=== PATIENT | female | born 1930 | race Asian ===

== ENCOUNTER 2017-06-13 19:56 | Inpatient (IN) | payer MEDICARE, OTHER ==
[~2017-06-13] VITALS: Ht 157.5 cm; Wt 42.1 kg
[~2017-06-13 19:56] MED LIST: ALLO100T PO; CARV12.530 PO; CHOL500045 PO; EPA PO; FERR1TAB85 PO; FURO20 PO; ISOS30TA11 PO; OSCAL PO; SIMV40TA5 PO; WARF1 PO; WARF2 PO
[2017-06-13] MEDS ORDERED: APIX5TAB PO (20:05)
[2017-06-13 20:55] LABS: BASOPHILS % (AUTO) 0.5 % (0.0-2.0); EOSINOPHILS % (AUTO) 0.2 % (1.0-6.0); HEMOGLOBIN 10.4 g/dL (12.0-16.0); LYMPHOCYTES # (AUTO) 0.8 K/uL (1.0-4.8); LYMPHOCYTES % (AUTO) 10.1 % (22.0-44.0); MEAN CORPUSCULAR HEMOGLOBIN 34.1 pg (26.0-34.0); MEAN CORPUSCULAR HGB CONC 33.6 G/dL (31.0-37.0); MEAN CORPUSCULAR VOLUME 102 fL (80-100); MONOCYTES # (AUTO) 0.5 K/uL (0.1-1.0); MONOCYTES % (AUTO) 6.5 % (2.0-9.0); NEUTROPHILS # (AUTO) 6.8 K/uL (1.8-7.7); NEUTROPHILS % (AUTO) 82.7 % (40.0-70.0); PLATELET COUNT (AUTO) 218 K/uL (150-450); RED BLOOD CELL COUNT(AUTO) 3.05 MIL/uL (4.00-5.20); RED CELL DISTRIBUTION WIDTH 16.1 % (11.5-14.5); WHITE BLOOD COUNT (AUTO) 8.2 K/uL (4.5-11.0)
[2017-06-13 20:58] LABS: CALCIUM, TOTAL 9.1 mg/dL (8.8-10.5); CREATININE 1.51 mg/dL (0.60-1.30); POTASSIUM 3.3 mmol/L (3.5-5.1)
[2017-06-13 21:05] LABS: TROPONIN I 0.07 ng/mL (0.00-0.05)
[2017-06-13 21:08] LABS: INR 1.3 (0.9-1.1); PROTHROMBIN TIME 13.2 SEC (9.4-11.6)
[2017-06-13 21:14] LABS: AMMONIA < 10 umol/L (11-32)
[2017-06-13 21:20] LABS: RBC MORPHOLOGY COMMENT ABNORMAL RBC MORPH
[2017-06-13 21:22] LABS: BILIRUBIN,TOTAL 1.8 mg/dL (0.1-1.0); CREATINE KINASE MB 5.4 ng/mL (0-5); TOTAL PROTEIN, SERUM 6.9 g/dL (6.4-8.2)
[2017-06-13] MEDS ORDERED: MAGNESIUM HYDROXIDE SUSPENSION 30 ML UDCUP PO PRN (23:30)
[2017-06-13] MEDS ORDERED: 0.9% SODIUM CHLORIDE 10 ML SYRINGE IVP PRN ×2 (23:30)
[2017-06-13] MEDS ORDERED: OxyCODONE HCL/ACETAMINOPHEN 5-325 MG TABLET PO PRN ×2 (23:30)
[2017-06-13] MEDS ORDERED: ONDANSETRON HCL 4 MG/2 ML VIAL IVP PRN ×2 (23:30)
[2017-06-13] MEDS ORDERED: ACETAMINOPHEN 325 MG TABLET PO PRN ×2 (23:30)
[2017-06-14] MEDS ORDERED: SIMVASTATIN 40 MG TABLET PO SCH
[2017-06-14] MEDS: APIXABAN 5 MG TABLET PO SCH ×3 (02:17→20:37)
[2017-06-14 04:46] VITALS: BP 110/60
[2017-06-14 06:52] LABS: BASOPHILS % (AUTO) 0.2 % (0.0-2.0); EOSINOPHILS % (AUTO) 0.4 % (1.0-6.0); HEMATOCRIT 30.2 % (36-46); HEMOGLOBIN 10.1 g/dL (12.0-16.0); LYMPHOCYTES # (AUTO) 0.9 K/uL (1.0-4.8); LYMPHOCYTES % (AUTO) 13.5 % (22.0-44.0); MEAN CORPUSCULAR HEMOGLOBIN 34.4 pg (26.0-34.0); MEAN CORPUSCULAR HGB CONC 33.4 G/dL (31.0-37.0); MEAN CORPUSCULAR VOLUME 103 fL (80-100); MONOCYTES # (AUTO) 0.5 K/uL (0.1-1.0); MONOCYTES % (AUTO) 7.1 % (2.0-9.0); NEUTROPHILS # (AUTO) 5.5 K/uL (1.8-7.7); NEUTROPHILS % (AUTO) 78.8 % (40.0-70.0); PLATELET COUNT (AUTO) 183 K/uL (150-450); RED BLOOD CELL COUNT(AUTO) 2.93 MIL/uL (4.00-5.20); RED CELL DISTRIBUTION WIDTH 16.5 % (11.5-14.5)
[2017-06-14 07:00] LABS: CALCIUM, TOTAL 8.9 mg/dL (8.8-10.5); CREATININE 1.25 mg/dL (0.60-1.30)
[2017-06-14 07:07] LABS: POTASSIUM 2.9 mmol/L (3.5-5.1)
[2017-06-14 07:30] VITALS: BP 105/67
[2017-06-14] MEDS ORDERED: POTASSIUM CHLORIDE 20 MEQ ER TABLET PO PRN (08:00)
[2017-06-14] MEDS ORDERED: CARVEDILOL 12.5 MG TABLET PO SCH ×2 (09:00)
[2017-06-14] MEDS: DOCUSATE SODIUM 100 MG CAPSULE PO SCH ×2 (09:11→20:37)
[2017-06-14] MEDS: ISOSORBIDE DINITRATE 10 MG TABLET PO SCH (09:11)
[2017-06-14] MEDS: CALCIUM OYSTER SHELL 500 MG TABLET PO SCH ×2 (09:11→20:37)
[2017-06-14] MEDS: PANTOPRAZOLE SODIUM 40 MG/VIAL IVP SCH (09:12)
[2017-06-14] MEDS: ALLOPURINOL 100 MG TABLET PO SCH (09:12)
[2017-06-14] MEDS: FUROSEMIDE 40 MG TABLET PO SCH (09:12)
[2017-06-14] MEDS: FERROUS SULFATE 325 MG EC TABLET PO SCH (09:12)
[2017-06-14 09:38] LABS: RBC MORPHOLOGY COMMENT ABNORMAL RBC MORPH
[2017-06-14 11:14] VITALS: BP 92/46
[2017-06-14] MEDS ORDERED: SODIUM CHLORIDE 0.9% 500 ML IV ONE (11:29)
[2017-06-14] MEDS: OMEGA-3/DHA/EPA/FISH OIL 500 MG CAPSULE PO SCH (11:32)
[2017-06-14] MEDS: POTASSIUM CHL 10 MEQ/WATER 50 ML IV PRN ×4 (11:33→16:55)
[2017-06-14 16:06] VITALS: BP 112/59
[2017-06-14] MEDS: SIMVASTATIN 20 MG TABLET PO SCH (18:16)
[2017-06-14 20:11] VITALS: BP 98/55
[2017-06-14] MEDS: CARVEDILOL 6.25 MG TABLET PO SCH (20:37)
[2017-06-15] VITALS (7 sets, daily range): BP systolic 116–125; BP diastolic 58–89
[2017-06-15 06:31] LABS: BASOPHILS % (AUTO) 0.3 % (0.0-2.0); EOSINOPHILS % (AUTO) 0.4 % (1.0-6.0); HEMATOCRIT 29.9 % (36-46); HEMOGLOBIN 10.1 g/dL (12.0-16.0); LYMPHOCYTES # (AUTO) 1.2 K/uL (1.0-4.8); LYMPHOCYTES % (AUTO) 19.5 % (22.0-44.0); MEAN CORPUSCULAR HEMOGLOBIN 34.4 pg (26.0-34.0); MEAN CORPUSCULAR HGB CONC 33.7 G/dL (31.0-37.0); MEAN CORPUSCULAR VOLUME 102 fL (80-100); MONOCYTES # (AUTO) 0.5 K/uL (0.1-1.0); MONOCYTES % (AUTO) 8.5 % (2.0-9.0); NEUTROPHILS # (AUTO) 4.5 K/uL (1.8-7.7); NEUTROPHILS % (AUTO) 71.3 % (40.0-70.0); PLATELET COUNT (AUTO) 204 K/uL (150-450); RED BLOOD CELL COUNT(AUTO) 2.92 MIL/uL (4.00-5.20); RED CELL DISTRIBUTION WIDTH 16.3 % (11.5-14.5); WHITE BLOOD COUNT (AUTO) 6.3 K/uL (4.5-11.0)
[2017-06-15 06:52] LABS: ALBUMIN 2.9 g/dL (3.4-5.0); BILIRUBIN,TOTAL 1.2 mg/dL (0.1-1.0); CALCIUM, TOTAL 9.2 mg/dL (8.8-10.5); CREATININE 1.62 mg/dL (0.60-1.30); MAGNESIUM 2.1 mg/dL (1.80-2.40); POTASSIUM 4.5 mmol/L (3.5-5.1); TOTAL PROTEIN, SERUM 6.8 g/dL (6.4-8.2)
[2017-06-15] MEDS: APIXABAN 5 MG TABLET PO SCH (08:42)
[2017-06-15] MEDS: PANTOPRAZOLE SODIUM 40 MG/VIAL IVP SCH (08:42)
[2017-06-15] MEDS: DOCUSATE SODIUM 100 MG CAPSULE PO SCH ×2 (08:42→21:35)
[2017-06-15] MEDS: OMEGA-3/DHA/EPA/FISH OIL 500 MG CAPSULE PO SCH (08:43)
[2017-06-15] MEDS: CARVEDILOL 6.25 MG TABLET PO SCH ×2 (08:43→21:35)
[2017-06-15] MEDS: FUROSEMIDE 40 MG TABLET PO SCH (08:44)
[2017-06-15] MEDS: CALCIUM OYSTER SHELL 500 MG TABLET PO SCH ×2 (08:44→21:35)
[2017-06-15] MEDS: FERROUS SULFATE 325 MG EC TABLET PO SCH (08:44)
[2017-06-15] MEDS: ALLOPURINOL 100 MG TABLET PO SCH (08:44)
[2017-06-15] MEDS: ISOSORBIDE DINITRATE 10 MG TABLET PO SCH (13:32)
[2017-06-15] MEDS ORDERED: FURO40 PO (15:49)
[2017-06-15] MEDS ORDERED: OS500 PO (15:49)
[2017-06-15] MEDS: SIMVASTATIN 20 MG TABLET PO SCH (17:37)
[2017-06-16 04:53] VITALS: BP 104/79
[2017-06-16 07:35] VITALS: BP 98/56
[2017-06-16] MEDS: CARVEDILOL 6.25 MG TABLET PO SCH (09:00)
[2017-06-16] MEDS ORDERED: APIXABAN 2.5 MG TABLET PO SCH (09:00)
[2017-06-16] MEDS: DOCUSATE SODIUM 100 MG CAPSULE PO SCH (09:00)
[2017-06-16] MEDS: FERROUS SULFATE 325 MG EC TABLET PO SCH (09:00)
[2017-06-16] MEDS: ALLOPURINOL 100 MG TABLET PO SCH (09:00)
[2017-06-16] MEDS: FUROSEMIDE 40 MG TABLET PO SCH (09:00)
[2017-06-16] MEDS: PANTOPRAZOLE SODIUM 40 MG/VIAL IVP SCH (09:00)
[2017-06-16] MEDS: OMEGA-3/DHA/EPA/FISH OIL 500 MG CAPSULE PO SCH (09:00)
[2017-06-16] MEDS: CALCIUM OYSTER SHELL 500 MG TABLET PO SCH (09:00)
[2017-06-16] MEDS: ISOSORBIDE DINITRATE 10 MG TABLET PO SCH (09:00)
[2017-06-16 11:45] VITALS: BP 118/70
[2017-06-16 14:40] LABS: BASOPHILS # (AUTO) 0.02 K/uL (0.00-0.20); BASOPHILS % (AUTO) 0.4 % (0.0-2.0); EOSINOPHILS # (AUTO) 0.02 K/uL (0.00-0.70); EOSINOPHILS % (AUTO) 0.48 % (1.0-6.0); HEMATOCRIT 29.2 % (36-46); HEMOGLOBIN 9.6 g/dL (12.0-16.0); LYMPHOCYTES # (AUTO) 0.9 K/uL (1.0-4.8); LYMPHOCYTES % (AUTO) 17.6 % (22.0-44.0); MEAN CORPUSCULAR HEMOGLOBIN 33.2 pg (26.0-34.0); MEAN CORPUSCULAR HGB CONC 32.7 G/dL (31.0-37.0); MEAN CORPUSCULAR VOLUME 101 fL (80-100); MONOCYTES # (AUTO) 0.4 K/uL (0.1-1.0); MONOCYTES % (AUTO) 8.3 % (2.0-9.0); NEUTROPHILS # (AUTO) 3.6 K/uL (1.8-7.7); NEUTROPHILS % (AUTO) 73.3 % (40.0-70.0); PLATELET COUNT (AUTO) 200 K/uL (150-450); RED BLOOD CELL COUNT(AUTO) 2.88 MIL/uL (4.00-5.20); RED CELL DISTRIBUTION WIDTH 16.2 % (11.5-14.5); WHITE BLOOD COUNT (AUTO) 4.9 K/uL (4.5-11.0)
[2017-06-16 15:03] LABS: ALBUMIN 2.6 g/dL (3.4-5.0); BILIRUBIN,TOTAL 0.9 mg/dL (0.1-1.0); CALCIUM, TOTAL 9.2 mg/dL (8.8-10.5); CREATININE 1.48 mg/dL (0.60-1.30); MAGNESIUM 2.1 mg/dL (1.80-2.40); POTASSIUM 3.6 mmol/L (3.5-5.1); TOTAL PROTEIN, SERUM 6.3 g/dL (6.4-8.2)
[2017-06-16 15:32] VITALS: BP 97/54
[2017-06-16] MEDS ORDERED: DSS100 PO (17:46)
[2017-06-16] MEDS ORDERED: OMEG100T PO (17:48)
[2017-06-16] MEDS ORDERED: PANT40TA25 PO (17:49)
[2017-06-16] MEDS ORDERED: SIMV-260 PO (17:49)
[2017-06-16] MEDS ORDERED: MOM30 PO (17:50)
[2017-06-16] MEDS ORDERED: ACET-2247 PO (17:50)
[2017-06-16] MEDS ORDERED: ONDA4 PO (17:51)
[2017-06-17] MEDS ORDERED: CHOLECALCIFEROL (VIT D3) 5,000 UNITS CAPSULE PO SCH (09:00)
== END 2017-06-16 17:45 | DRG 64 ==
LOC: EMS 19:57 → 5S 23:31
PROVIDERS: ADMIT Internal Medicine; ATTEND Internal Medicine
DX: I63.9 Cerebral infarction, unspecified (principal); E43 Unspecified severe protein-calorie malnutrition; I48.2 Chronic atrial fibrillation; I49.5 Sick sinus syndrome; I50.9 Heart failure, unspecified; I11.0 Hypertensive heart disease with heart failure; Z95.1 Presence of aortocoronary bypass graft; G45.9 Transient cerebral ischemic attack, unspecified; E78.5 Hyperlipidemia, unspecified; E87.6 Hypokalemia; I25.10 Atherosclerotic heart disease of native coronary artery without angina pectoris; M10.9 Gout, unspecified; Z79.01 Long term (current) use of anticoagulants; Z86.73 Personal history of transient ischemic attack (TIA), and cerebral infarction without residual deficits; Z95.0 Presence of cardiac pacemaker
CPT/HCPCS: 70450; 83735; 84132; 93005; 93306; 93880; 97162; 97167; 97530; 99291; C9113; J3480; J7040

== ENCOUNTER 2017-07-19 21:37 | Emergency (ER) | payer MEDICARE, OTHER ==
[~2017-07-19] VITALS: Ht 154.9 cm; Wt 53.1 kg
[~2017-07-19 21:37] MED LIST changes: +ACET-2247 PO; +APIX5TAB PO; +DSS100 PO; -FURO20 PO; +FURO40 PO; +MOM30 PO; +OMEG100T PO; +ONDA4 PO; +OS500 PO; -OSCAL PO; +PANT40TA25 PO; +SIMV-260 PO; -WARF1 PO; -WARF2 PO
[2017-07-19] MEDS ORDERED: FURO40TA5 PO (22:03)
[2017-07-19] MEDS ORDERED: ALLO100T PO (22:03)
[2017-07-19] MEDS ORDERED: APIX2.5T PO (22:04)
[2017-07-19] MEDS ORDERED: CARV3.1231 PO (22:04)
[2017-07-19 23:30] VITALS: BP 130/58
== END 2017-07-20 01:05 | disposition home or self-care (01) ==
LOC: EMS 21:41
DX: S00.83XA Contusion of other part of head, initial encounter (principal); I11.0 Hypertensive heart disease with heart failure; I50.9 Heart failure, unspecified; I25.10 Atherosclerotic heart disease of native coronary artery without angina pectoris; W18.39XA Other fall on same level, initial encounter; Y93.89 Activity, other specified; Y92.89 Other specified places as the place of occurrence of the external cause; Y99.8 Other external cause status
CPT/HCPCS: 70450; 70486; 99284